=== PATIENT | female | born 1955 | race Caucasian/White ===

== ENCOUNTER 2017-09-16 23:44 | Emergency (ER) | payer OTHER ==
[~2017-09-16] VITALS: Ht 162.6 cm; Wt 88.2 kg
[~2017-09-16 23:44] MED LIST: CLOZARIL100 MG PO; COGENTIN1 MG PO; COLACE100 MG PO; Desyrel PO; GEODON80 MG PO; Geodon PO; KLONOPIN1 MG PO; LIPITOR20 MG PO; NAMENDA10 MG PO; OLEPTRO ER150 MG PO; TRAZODONE HCL100 MG PO; TRILAFON8 MG PO; Trilafon PO
[2017-09-17 00:57] LABS: BASOPHIL (%) 0.6 % (0-1); BASOPHIL COUNT 0.1 K/uL (0-0.1); EOSINOPHIL (%) 1.3 % (0-5); EOSINOPHIL COUNT 0.1 K/uL (0-0.3); HEMATOCRIT 38.5 % (36.0-46.0); HEMOGLOBIN 12.7 G/DL (11.9-15.5); IMMATURE GRANULOCYTE (%) 0.3 % (0.0-0.7); LYMPHOCYTE (%) 46.9 % (15-42); LYMPHOCYTE COUNT 4.1 K/uL (1.0-2.8); MCH 29.9 PG (29.0-34.0); MCV 90.6 FL (83-99); MONOCYTE (%) 8.6 % (3-12); MONOCYTE COUNT 0.8 K/uL (0-0.8); NEUTROPHIL (%) 42.3 % (45-76); NEUTROPHIL COUNT 3.7 K/uL (1.8-6.4); PLATELET COUNT 250 K/uL (156-360); RBC DIS.WIDTH-CV 13.1 % (11.8-14.6); RBC DIS.WIDTH-SD 43.3 % (39-53); RED BLOOD COUNT 4.25 M/uL (3.80-5.20); WHITE BLOOD COUNT 8.8 K/uL (4.1-10.2)
[2017-09-17 01:21] LABS: CHLORIDE 109 mEq/L (99-109); POTASSIUM 3.5 mEq/L (3.7-5.4); SODIUM 142 mEq/L (136-147)
[2017-09-17 01:23] LABS: GLUCOSE 109 mg/dL (70-99); TOTAL PROTEIN 6.9 g/dL (6.4-8.3)
[2017-09-17 01:25] LABS: TOTAL BILIRUBIN 0.2 mg/dL (0.0-1.0)
[2017-09-17 01:26] LABS: ALKALINE PHOSPHATASE 112 IU/L (3-129); SERUM ETHYL ALCOHOL < 10 mg/dL
[2017-09-17 01:27] LABS: CREATININE 0.9 mg/dL (0.6-1.3); GFR ESTIMATE (CALCULATED) > 59 mL/min/
[2017-09-17 01:28] LABS: AST (GOT) 20 IU/L (2-34); UREA NITROGEN (BUN) 12 mg/dL (9-23)
[2017-09-17 01:29] LABS: ALT (GPT) 15 IU/L (3-49); TROP-I INTERPRETATION NEGATIVE; TROPONIN-I < 0.01 ng/mL (0.0-0.30)
[2017-09-17 01:51] LABS: AMPHETAMINE NEGATIVE (500 ng/mL); BARBITURATES NEGATIVE (200 ng/mL); BENZODIAZEPINES NEGATIVE (150 ng/mL); BUPRENORPHINE NEGATIVE (10 ng/mL); COCAINE NEGATIVE (150 ng/mL); METHADONE NEGATIVE (200 ng/mL); METHAMPHETAMINE NEGATIVE (500 ng/mL); OPIATES (MORPHINE) NEGATIVE (100 ng/mL); OXYCODONE NEGATIVE (100 ng/mL); PHENCYCLIDINE NEGATIVE (25 ng/mL); PROPOXYPHENE NEGATIVE (300 ng/mL); THC CANNABINOIDS NEGATIVE (50 ng/mL); TRICYCLIC ANTIDEPRESSANTS NEGATIVE (300 ng/mL)
[2017-09-17 02:41] VITALS: BP 152/61
== END 2017-09-17 02:14 | disposition home or self-care (01) ==
LOC: EME → EDBD 23:44 → EME 09-17 02:14
PROVIDERS: Emergency Medicine
DX: F15.982 Other stimulant use, unspecified with stimulant-induced sleep disorder (principal); E78.5 Hyperlipidemia, unspecified; F32.9 Major depressive disorder, single episode, unspecified
CPT/HCPCS: 80053; 84484; 85025; 93005; 99281; 99284; G0480